=== PATIENT | female | born 1980 | race Caucasian/White ===

== ENCOUNTER 2018-08-25 09:33 | Inpatient (IN) | payer OTHER ==
[~2018-08-25] VITALS: Ht 167.6 cm; Wt 75.0 kg
--- NOTE | ~2018-08-25 | MORECARE ---
CASE MANAGEMENT DISCHARGE SUMMARY PATIENT: OSMANY HUNTER UNIT: [id number] ADM DATE: 08/25/18 AGE: 38 : [birth year] SEX: F ROOM/BED: D.2133 AUTHOR: DOUG,DOC PHYSICIAN: REFERRING PHYSICIAN: BARBARA DICKINSON MD DATE OF SERVICE: 08/27/18 Discharge Plan Patient Name: OSMANY HUNTER Facility: [facility]:[place] : 1980 Planned Disposition: Home Anticipated Discharge Date: 08/27/18 Discharge Date: Expected LOS: 2 Initial Reviewer: [email or web address] Initial Review Date: 08/25/2018 Generated: 08/27/18 12:49 pm DCP- Discharge Planning Updated by [email or web address]: Farzaneh Monte on 08/25/18 4:[address] Patient Name: OSMANY HUNTER Admission Status: ER Accout number: [id number] Admission Date: 08-25-2018 : 1980 Admission Diagnosis: Attending: BARBARA DICKINSON Current LOS: 1 Anticipated DC Date: 08-28-2018 Planned Disposition: Home Primary Insurance: [employer] Discharge Planning Comments: CM met with patient to complete initial dc planning assessment. CM educated patient on the CM role and verbal consent given by patient to complete assessment. Patient lives at home with her and their 3 children. She reports she is independent in her care at home. At discharge patient plans to return home and feels this is a safe discharge. Patient denied known discharge needs at this time. CM will continue to follow and will assist as needed with dc plans/needs. See below for more assessment information. Dean Of Admissions: Farzaneh Monte RN, [facility] DCPIA - Discharge Planning Initial Assessment Updated by [email or web address]: Farzaneh Monte on 08/25/18 5:08 pm * Is the patient Alert and Oriented? Yes * How many steps to enter\exit or inside your home? * PCP Ger Alford MD * Pharmacy [facility] * Preadmission Environment Home with Family * ADLs Independent * Equipment None * List name and contact numbers for known caregivers / representatives who currently or will assist patient after discharge: Jeannie Ramirez - [place] - [phone] * Verbal permission to speak to the caregivers and representatives has been obtained from the patient. Yes * Community resources currently utilized None * Additional services required to return to the preadmission environment? No * Can the patient safely return to the preadmission environment? Yes * Has this patient been hospitalized within the prior 30 days at any hospital? Yes Last DP export: 08/25/18 4:13 p Patient Name: OSMANY HUNTER Page [id number] at 1150 All edits/amendments must be made on the electronic document DICTATION DATE: 08/27/18 1149 BEAM BUILDER: CATHY 08/27/18 1149 RPT#: [id number] DC DATE: STATUS: ADM IN [facility] [address] [place] [address] END OF REPORT
--- NOTE | ~2018-08-25 | MORECARE ---
CASE MANAGEMENT DISCHARGE SUMMARY PATIENT: OSMANY HUNTER UNIT: [id number] ADM DATE: 08/25/18 AGE: 38 : 80 SEX: F ROOM/BED: D.2133 AUTHOR: DOUG,DOC PHYSICIAN: REFERRING PHYSICIAN: BARBARA DICKINSON MD DATE OF SERVICE: 08/25/18 Discharge Plan Patient Name: OSMANY HUNTER Facility: [facility]:[place] : 1980 Planned Disposition: Home Anticipated Discharge Date: 08/28/18 Discharge Date: Expected LOS: 3 Initial Reviewer: [email or web address] Initial Review Date: 08/25/2018 Generated: 08/25/18 6:13 pm DCP- Discharge Planning Updated by [email or web address]: Farzaneh Monte on 08/25/18 4:[address] Patient Name: OSMANY HUNTER Admission Status: ER Accout number: [id number] Admission Date: 08-25-2018 : 1980 Admission Diagnosis: Attending: BARBARA DICKINSON Current LOS: 1 Anticipated DC Date: 08-28-2018 Planned Disposition: Home Primary Insurance: [employer] Discharge Planning Comments: CM met with patient to complete initial dc planning assessment. CM educated patient on the CM role and verbal consent given by patient to complete assessment. Patient lives at home with her and their 3 children. She reports she is independent in her care at home. At discharge patient plans to return home and feels this is a safe discharge. Patient denied known discharge needs at this time. CM will continue to follow and will assist as needed with dc plans/needs. See below for more assessment information. Maintenance Representative: Farzaneh Monte RN, [facility] DCPIA - Discharge Planning Initial Assessment Updated by [email or web address]: Farzaneh Monte on 08/25/18 5:08 pm * Is the patient Alert and Oriented? Yes * How many steps to enter\exit or inside your home? * PCP Ger Alford MD * Pharmacy [facility] * Preadmission Environment Home with Family * ADLs Independent * Equipment None * List name and contact numbers for known caregivers / representatives who currently or will assist patient after discharge: Jeannie Ramirez - [place] - [phone] * Verbal permission to speak to the caregivers and representatives has been obtained from the patient. Yes * Community resources currently utilized None * Additional services required to return to the preadmission environment? No * Can the patient safely return to the preadmission environment? Yes * Has this patient been hospitalized within the prior 30 days at any hospital? Yes Patient Name: OSMANY HUNTER Page 14724 at 1713 All edits/amendments must be made on the electronic document DICTATION DATE: 08/25/181711 STRUCTURES MECHANIC: CATHY 08/25/181711 RPT#: [id number] DC DATE: STATUS: ADM IN [facility] [address] [place] [address] END OF REPORT
[2018-08-25] MEDS ORDERED: GLUCOPHAGE500 MG PO (09:43)
[2018-08-25] MEDS ORDERED: BUPROPION XL300 MG PO (09:43)
[2018-08-25] MEDS ORDERED: BENTYL 20 MG TA20 MG PO (09:43)
[2018-08-25] MEDS ORDERED: NORVASC10 MG PO (09:43)
[2018-08-25] MEDS ORDERED: ZOFRAN ODT4 MG/UDTAB PO (09:43)
[2018-08-25 10:33] LABS: BASOPHILS 0.4 % (0-2); EOSINOPHILS 5.9 % (0-7); HEMATOCRIT 41.1 % (36.0-48.0); HEMOGLOBIN 14.6 g/dL (12-16); IMMATURE GRANULOCYTES 0.3 % (0-5); LYMPHOCYTES 10.1 % (15-50); MCH 28.6 pg (26.0-34.0); MCHC 35.5 g/dL (31.0-37.0); MCV 80.4 fL (80.0-100.0); MONOCYTES 5.9 % (2-11); NEUTROPHILS 77.4 % (40-80); PLATELET COUNT 331 10x3/uL (130-400); RBC 5.11 10x6/uL (4.00-5.40); RDW 12.7 % (11.5-14.5); WBC 14.1 10x3/uL (4.8-10.8)
[2018-08-25 10:57] LABS: ALBUMIN 3.5 g/dL (3.4-5.0); ALKALINE PHOSPHATASE 78 U/L (46-116); ALT (SGPT) 20 U/L (10-68); AMYLASE - SERUM 19 U/L (25-115); BILIRUBIN - TOTAL 0.36 mg/dL (0.2-1.3); CALC OSMOLALITY 273 mosm/kg (275-300); CALCIUM 8.9 mg/dL (8.5-10.1); CARBON DIOXIDE 26.1 mmol/L (21.0-32.0); CHLORIDE - SERUM 99 mmol/L (98-107); CREATININE - SERUM 0.7 mg/dL (0.6-1.3); GLUCOSE 230 mg/dL (74-106); LIPASE 91 U/L (73-393); POTASSIUM - SERUM 4.1 mmol/L (3.5-5.1); PROTEIN - SERUM 7.6 g/dL (6.4-8.2); SODIUM 135 mmol/L (136-145); UREA NITROGEN 5 mg/dL (7-18); eGFR NON AFRICAN AMERICAN > 90 mL/min (90-120)
[2018-08-25 10:58] LABS: TROPONIN-I < 0.017 ng/mL (0.000-0.060)
[2018-08-25 12:31] LABS: APPEARANCE CLEAR (CLEAR); BACTERIA NONE SEEN /hpf (NONE SEEN); BILIRUBIN NEGATIVE (NEGATIVE); COLOR YELLOW (YELLOW); EPITHELIAL CELLS NSEEN /hpf (0-5); GLUCOSE 1000 mg/dL (NEGATIVE); KETONE NEGATIVE (NEGATIVE); NITRITE NEGATIVE (NEGATIVE); PROTEIN NEGATIVE (NEGATIVE); RED CELLS - URINE NONE SEEN /hpf (0-5); SPECIFIC GRAVITY 1.005 (1.005-1.020); UROBILINOGEN NORMAL (NORMAL); WHITE CELLS - URINE NSEEN /hpf (0-5)
[2018-08-25 17:28] VITALS: BP 100/70; BMI 26.5
[2018-08-25 20:14] VITALS: Ht 167.6 cm; Wt 75.0 kg
[2018-08-25 21:47] VITALS: BP 93/60
[2018-08-26 00:30] VITALS: BP 102/67
[2018-08-26 05:27] LABS: BASOPHILS 0.1 % (0-2); EOSINOPHILS 0.1 % (0-7); HEMATOCRIT 40.2 % (36.0-48.0); IMMATURE GRANULOCYTES 0.3 % (0-5); LYMPHOCYTES 4.9 % (15-50); MCH 28.3 pg (26.0-34.0); MCHC 34.8 g/dL (31.0-37.0); MCV 81.2 fL (80.0-100.0); MEAN PLATELET VOLUME 9.3 fL (7.4-10.4); MONOCYTES 1.4 % (2-11); NEUTROPHILS 93.2 % (40-80); PLATELET COUNT 357 10x3/uL (130-400); RBC 4.95 10x6/uL (4.00-5.40); RDW 12.7 % (11.5-14.5); WBC 13.3 10x3/uL (4.8-10.8)
[2018-08-26 05:33] VITALS: BP 101/65
[2018-08-26 06:01] LABS: ALBUMIN 3.1 g/dL (3.4-5.0); ALKALINE PHOSPHATASE 77 U/L (46-116); ALT (SGPT) 19 U/L (10-68); BILIRUBIN - TOTAL 0.27 mg/dL (0.2-1.3); CALCIUM 9.1 mg/dL (8.5-10.1); CARBON DIOXIDE 24.1 mmol/L (21.0-32.0); CHLORIDE - SERUM 101 mmol/L (98-107); CREATININE - SERUM 0.6 mg/dL (0.6-1.3); PROTEIN - SERUM 7.3 g/dL (6.4-8.2); SODIUM 136 mmol/L (136-145); eGFR NON AFRICAN AMERICAN > 90 mL/min (90-120)
[2018-08-26 06:02] LABS: CALC OSMOLALITY 282 mosm/kg (275-300); GLUCOSE 311 mg/dL (74-106); UREA NITROGEN 10 mg/dL (7-18)
[2018-08-26 06:52] LABS: ERYTHROCYTE SEDIMENTATION RATE 40 mm/hr (0-20)
[2018-08-26 08:12] VITALS: BP 108/78
[2018-08-26 11:22] VITALS: BP 120/78
[2018-08-26 15:41] VITALS: BP 112/73
[2018-08-26 21:31] VITALS: BP 109/72
[2018-08-27 00:49] VITALS: BP 112/68
[2018-08-27 05:46] LABS: BASOPHILS 0.1 % (0-2); EOSINOPHILS 0 % (0-7); HEMATOCRIT 37.5 % (36.0-48.0); HEMOGLOBIN 13.1 g/dL (12-16); IMMATURE GRANULOCYTES 0.4 % (0-5); LYMPHOCYTES 3.7 % (15-50); MCH 28.2 pg (26.0-34.0); MCHC 34.9 g/dL (31.0-37.0); MCV 80.8 fL (80.0-100.0); MEAN PLATELET VOLUME 9.4 fL (7.4-10.4); MONOCYTES 4.4 % (2-11); NEUTROPHILS 91.4 % (40-80); PLATELET COUNT 391 10x3/uL (130-400); RBC 4.64 10x6/uL (4.00-5.40); RDW 12.7 % (11.5-14.5)
[2018-08-27 05:58] VITALS: BP 115/75
[2018-08-27 06:06] LABS: CALC OSMOLALITY 284 mosm/kg (275-300); CALCIUM 8.9 mg/dL (8.5-10.1); CHLORIDE - SERUM 102 mmol/L (98-107); CREATININE - SERUM 0.6 mg/dL (0.6-1.3); POTASSIUM - SERUM 4.4 mmol/L (3.5-5.1); SODIUM 138 mmol/L (136-145); UREA NITROGEN 12 mg/dL (7-18); eGFR NON AFRICAN AMERICAN > 90 mL/min (90-120)
[2018-08-27 06:07] LABS: GLUCOSE 257 mg/dL (74-106)
[2018-08-27 08:54] VITALS: BP 123/81
[2018-08-27] MEDS ORDERED: MESALAMINE800 MG PO (09:27)
[2018-08-27] MEDS ORDERED: PREDNISONE10 MG PO (09:32)
[2018-08-27] MEDS ORDERED: GLYBURIDE5 M1 PO (09:33)
[2018-08-27 10:50] VITALS: BP 108/73
== END 2018-08-27 12:23 | disposition home or self-care (01) | DRG 392 ==
LOC: D.ER 09:33 → D.M2 13:29 → D.EDHOLD 13:29 → D.M2 16:01
PROVIDERS: Family Medicine; Internal Medicine Nephrology
DX: K52.3 Indeterminate colitis (principal); K51.90 Ulcerative colitis, unspecified, without complications; T50.995A Adverse effect of other drugs, medicaments and biological substances, initial encounter; E11.9 Type 2 diabetes mellitus without complications; I10 Essential (primary) hypertension; F41.9 Anxiety disorder, unspecified; L40.50 Arthropathic psoriasis, unspecified